=== PATIENT | female | born 1945 | race Two or more races ===

== ENCOUNTER 2017-11-04 13:29 | Inpatient (IN) | payer OTHER ==
[~2017-11-04] VITALS: Ht 165.1 cm; Wt 60.0 kg
[2017-11-04] VITALS (8 sets, daily range): BP systolic 101–134; BP diastolic 41–70
[2017-11-04] MEDS ORDERED: SODIUM CHLORIDE 0.9% 1,000 ML IV ONE (14:07)
[2017-11-04] MEDS ORDERED: LEVOFLOXACIN 500 MG/100 ML PREMIX BAG IV ONE (14:15)
[2017-11-04 14:50] LABS: Hematocrit 21.5 % (36.0-46.0); Mean Corpuscular Hgb Conc. 31.9 g/dL (32.0-36.0)
[2017-11-04 14:52] LABS: Mean Corpuscular Hemoglobin 23.7 pg (28.0-32.0); Mean Corpuscular Volume 74.3 fL (80.0-100.0); Platelet Count (auto) 148 10^3/uL (140-450)
[2017-11-04 15:02] LABS: Albumin 2.3 g/dL (3.4-5.0); Anion Gap 14 (5-15); Blood Alcohol < 3.0 mg/dL (0-5); Calcium 7.3 mg/dL (8.5-10.1); Carbon Dioxide 19 mmol/L (21-32); Chloride 94 mmol/L (98-107); Glucose 118 mg/dL (74-106); Magnesium 1.6 mg/dL (1.6-2.6); Sodium 127 mmol/L (136-145)
[2017-11-04 15:04] LABS: Alanine Aminotransferase 171 U/L (13-56); Aspartate Aminotransferase 341 U/L (15-37); GFR African American 15 mL/min; GFR Non-African American 12 mL/min
[2017-11-04 15:06] LABS: Lactic Acid w/Reflex 2.2 mmol/L (0.4-2.0)
[2017-11-04 15:08] LABS: Alkaline Phosphatase 443 U/L (45-117); Bilirubin, Total 2.8 mg/dL (0.2-1.0); Total Protein 6.3 g/dL (6.4-8.2)
[2017-11-04 15:13] LABS: Red Cell Distribution Width 27.1 % (11.8-14.3)
[2017-11-04 15:15] LABS: Blood Urea Nitrogen 90 mg/dL (7-18); INR 1.18 (0.9-1.15); Partial Thromboplastin Time 30.1 sec (22.64-33.71); Prothrombin Time 12.9 sec (9.37-12.3)
[2017-11-04 15:16] LABS: Hemoglobin 6.9 g/dL (12.2-16.2)
[2017-11-04 15:17] LABS: Band Neutrophils % (manual) 0; Basophils % (manual) 0 (0.0-2.0); Blast Cells 0; Eosinophils % (manual) 0 (0-7); Metamyelocytes % 0; Myelocytes % 0; Promyelocytes % 0; Reactive Lymphocytes 0
[2017-11-04 15:59] LABS: Urine Amorphous Crystal FEW /hpf (None Seen); Urine Bacteria FEW /hpf (None Seen); Urine Blood Negative /uL (Negative); Urine Mucus FEW (None Seen); Urine Specific Gravity 1.022 (1.001-1.035); Urine WBC 7 /hpf (0 - 5)
[2017-11-04] MEDS ORDERED: ERTAPENEM SOD INJ 0.5 GM in SODIUM CHL 0.9% 50 ML IV ONE (16:00)
[2017-11-04 16:27] LABS: Amylase 29 U/L (25-115); Lipase 86 U/L (73-393)
[2017-11-04] MEDS ORDERED: LORazepam 0.5 MG TAB PO PRN (16:30)
[2017-11-04] MEDS ORDERED: LACTULOSE 20Gm/30ML SOLN PO PRN (16:30)
[2017-11-04] MEDS ORDERED: PANTOPRAZOLE 40 MG/10 ML VIAL IV ONE (16:30)
[2017-11-04] MEDS ORDERED: TEMAZEPAM 15 MG CAP PO PRN (16:30)
[2017-11-04] MEDS ORDERED: PROMETHAZINE HCL 25 MG/ML 1ML IV PRN (16:30)
[2017-11-04] MEDS ORDERED: MORPHINE SULFATE 4 MG/ML SYR/VIAL IV PRN (16:30)
[2017-11-04] MEDS ORDERED: ALBUTEROL SULF 2.5 MG/0.5ML(0.5%) NEB SOLN NEB PRN (16:30)
[2017-11-04] MEDS ORDERED: LABETALOL HCL 5 MG/ML ML 20ML VIAL IV PRN (16:30)
[2017-11-04] MEDS ORDERED: NITROGLYCERIN 0.4 MG SL TAB SL PRN (16:30)
[2017-11-04] MEDS ORDERED: metroNIDAZOLE 500MG/100ML 100 ML IV ONE (16:30)
[2017-11-04 17:04] LABS: Lymphocytes % (manual) 6 (10.0-50.0); Monocytes % (manual) 1 (0-12)
[2017-11-04 17:25] LABS: Carcinoembryonic Antigen 2.39 ng/mL (<5.0 OR =)
[2017-11-04] MEDS: AZITHROMYCIN 500MG/ 250ML 250 ML IV SCH (17:33)
[2017-11-04 17:44] LABS: Folate (Folic Acid) 22.86 ng/mL (5.38-24)
[2017-11-04] MEDS ORDERED: metroNIDAZOLE 500MG/100ML 100 ML IV SCH (18:00)
[2017-11-04] MEDS ORDERED: NOREPINEPHRINE 8 MG/250ML KIT 250 ML IV ONE (18:05)
[2017-11-04 18:08] LABS: Hematocrit 21.2 % (36.0-46.0)
[2017-11-04] MEDS: NOREPINEPHRINE 8 MG/250ML KIT 250 ML IV SCH (18:08)
[2017-11-04 18:22] LABS: Hemoglobin 6.6 g/dL (12.2-16.2)
[2017-11-04] MEDS ORDERED: MIDAZOLAM DRIP 50 mg/50mL 50 ML IV ONE (18:38)
[2017-11-04] MEDS: MIDAZOLAM DRIP 50 mg/50mL 50 ML IV SCH ×2 (18:40→22:45)
[2017-11-04] MEDS ORDERED: LINEZOLID 600MG/300ML 300 ML IV ONE (19:30)
[2017-11-04] MEDS ORDERED: FUROSEMIDE 40 MG/4 ML VIAL IV ONE ×2 (20:00→23:30)
[2017-11-04] MEDS ORDERED: ATORVASTATIN 20 MG TAB PO SCH (22:00)
[2017-11-04] MEDS: PANTOPRAZOLE 40 MG/10 ML VIAL IV SCH (22:44)
[2017-11-05] VITALS (52 sets, daily range): BP systolic 85–127; BP diastolic 30–45
[2017-11-05 05:21] LABS: Basophils # (auto) 0 uL; Hematocrit 22.7 % (36.0-46.0); Hemoglobin 7.4 g/dL (12.2-16.2); Mean Corpuscular Hgb Conc. 32.7 g/dL (32.0-36.0); Monocytes # (auto) 0.9 uL; Neutrophils # (auto) 17.1 uL; Nucleated Red Blood Cells % 0.1 %
[2017-11-05 05:22] LABS: Basophils % (auto) 0.1 % (0.0-2.0); Eosinophils # (auto) 0.8 uL; Lymphocytes # (auto) 0.3 uL; Lymphocytes % (auto) 1.7 % (10.0-50.0); Mean Corpuscular Volume 79.5 fL (80.0-100.0); Monocytes % (auto) 4.8 % (0.0-12.0); Neutrophils % (auto) 89.4 % (37.0-80.0); Platelet Count (auto) 114 10^3/uL (140-450); Red Blood Cells 2.86 10^6/uL (4.0-5.20); White Blood Cell 19.1 10^3/uL (4.4-10.8)
[2017-11-05 05:23] LABS: Red Cell Distribution Width 25.2 % (11.8-14.3)
[2017-11-05 05:35] LABS: BUN/Creatinine Ratio 22.7; Bilirubin, Total 3.6 mg/dL (0.2-1.0); Calcium 6.9 mg/dL (8.5-10.1); Potassium 5.1 mmol/L (3.5-5.1); Total Protein 4.5 g/dL (6.4-8.2)
[2017-11-05] MEDS ORDERED: DOPamine 1600MCG/ML D5W 250 ML IV SCH (06:45)
[2017-11-05] MEDS: DOPamine 3200MCG/ML 250 ML IV SCH (07:16)
[2017-11-05] MEDS: PANTOPRAZOLE 40 MG/10 ML VIAL IV SCH ×2 (10:02→22:26)
[2017-11-05] MEDS: AZITHROMYCIN 500MG/ 250ML 250 ML IV SCH (10:02)
[2017-11-05] MEDS: LINEZOLID 600MG/300ML 300 ML IV SCH ×2 (10:03→22:26)
[2017-11-05] MEDS: ERTAPENEM SOD INJ 0.5 GM in SODIUM CHL 0.9% 50 ML IV SCH (11:13)
[2017-11-05] MEDS ORDERED: METO2.5T11 PO (12:08)
[2017-11-05] MEDS ORDERED: ATOR40TA52 PO (12:08)
[2017-11-05] MEDS ORDERED: PANT40TA2 PO (12:08)
[2017-11-05] MEDS ORDERED: TRAZ100T2 PO (12:08)
[2017-11-05] MEDS ORDERED: FLUT250M2 INH (12:08)
[2017-11-05] MEDS ORDERED: CARV6.2551 PO (12:08)
[2017-11-05] MEDS ORDERED: INSUINJ2 SC (12:08)
[2017-11-05] MEDS ORDERED: INSREG3 SC (12:08)
[2017-11-05] MEDS ORDERED: ISOS30TA4 PO (12:08)
[2017-11-05] MEDS ORDERED: HYDR50TA15 PO (12:08)
[2017-11-05] MEDS ORDERED: AMLO10TA2 PO (12:08)
[2017-11-05] MEDS ORDERED: DICL1GEL26 TD (12:08)
[2017-11-05] MEDS ORDERED: FURO40TA PO (12:08)
[2017-11-05] MEDS ORDERED: ALB5IS NEB (12:08)
[2017-11-05] MEDS ORDERED: POTA10TA34 PO (12:08)
[2017-11-05] MEDS ORDERED: ERGO1CAP23 PO (12:08)
[2017-11-05] MEDS ORDERED: ALL100T PO (12:08)
[2017-11-05] MEDS ORDERED: SODIUM BICARBONATE 8.4% INJ 50ML SYRINGE IV ONE (13:04)
[2017-11-05] MEDS ORDERED: EPINEPHrine HCL 1 MG/10 ML SYRG IV ONE (13:04)
[2017-11-05] MEDS ORDERED: CALCIUM CHLOR(10%) 100MG/ML 10ML SYRINGE IV ONE (13:04)
[2017-11-05] MEDS: MIDAZOLAM DRIP 50 mg/50mL 50 ML IV SCH (18:33)
[2017-11-05] MEDS: NOREPINEPHRINE 8 MG/250ML KIT 250 ML IV SCH (18:41)
[2017-11-05 19:46] LABS: BUN/Creatinine Ratio 22.9
[2017-11-05 20:06] LABS: Potassium 5.9 mmol/L (3.5-5.1)
[2017-11-05] MEDS ORDERED: BUMETANIDE INJECTION 12.5 MG in GIVE UN-DILUTED 0 ML IV SCH (20:15)
[2017-11-05] MEDS ORDERED: CALCIUM GLUC 4.65meq/50ml D5AE 50 ML IV ONE (20:30)
[2017-11-05] MEDS ORDERED: SODIUM BICARBONATE 8.4 % INJ 50ML VIAL IV ONE (20:30)
[2017-11-05] MEDS ORDERED: InsuLIN REG 1unit/0.01ml Soln (100units/ml) IV ONE (20:30)
[2017-11-05] MEDS ORDERED: DEXTROSE (50%) 50ML SYRG IV ONE (20:30)
[2017-11-05] MEDS ORDERED: DEXTROSE (50%) 50ML SYRG IV PRN (20:45)
[2017-11-05] MEDS ORDERED: SODIUM BICARBONATE 8.4% INJ 50ML SYRINGE ONE (21:20)
[2017-11-06] VITALS (108 sets, daily range): BP systolic 83–134; BP diastolic 32–58
[2017-11-06] MEDS ORDERED: ACCU-CHEK COMFORT CURVE STRIP VI SCH
[2017-11-06] MEDS ORDERED: DEXTROSE (50%) 50ML SYRG IV PRN (02:15)
[2017-11-06] MEDS ORDERED: InsuLIN REG 1unit/0.01ml Soln (100units/ml) SC ONE (02:30)
[2017-11-06] MEDS ORDERED: ACCU-CHEK COMFORT CURVE STRIP VI ONE (02:30)
[2017-11-06 03:46] LABS: Basophils # (auto) 0 uL; Mean Corpuscular Volume 79.1 fL (80.0-100.0); Monocytes # (auto) 0.6 uL
[2017-11-06 03:48] LABS: Basophils % (auto) 0.1 % (0.0-2.0); Eosinophils # (auto) 0.2 uL; Eosinophils % (auto) 0.9 % (0.0-7.0); Hemoglobin 7.6 g/dL (12.2-16.2); Lymphocytes # (auto) 0.7 uL; Lymphocytes % (auto) 3.7 % (10.0-50.0); Mean Corpuscular Hemoglobin 25.9 pg (28.0-32.0); Mean Corpuscular Hgb Conc. 32.8 g/dL (32.0-36.0); Neutrophils # (auto) 18.5 uL; Neutrophils % (auto) 92.3 % (37.0-80.0); Nucleated Red Blood Cells % 0.1 %; Platelet Count (auto) 97 10^3/uL (140-450); Red Blood Cells 2.92 10^6/uL (4.0-5.20)
[2017-11-06 04:01] LABS: Red Cell Distribution Width 25.1 % (11.8-14.3)
[2017-11-06 04:12] LABS: Albumin 1.8 g/dL (3.4-5.0); BUN/Creatinine Ratio 22.9; Bilirubin, Total 2.1 mg/dL (0.2-1.0); Calcium 7.3 mg/dL (8.5-10.1); Phosphorus 6.7 mg/dL (2.5-4.90); Potassium 4.9 mmol/L (3.5-5.1); Total Protein 5.2 g/dL (6.4-8.2)
[2017-11-06] MEDS ORDERED: InsuLIN REG 1unit/0.01ml Soln (100units/ml) SC SCH ×2 (08:00)
[2017-11-06] MEDS: ACCU-CHEK COMFORT CURVE STRIP VI SCH ×4 (08:30→19:50)
[2017-11-06] MEDS: DOPamine 3200MCG/ML 250 ML IV SCH (09:07)
[2017-11-06] MEDS: LINEZOLID 600MG/300ML 300 ML IV SCH ×2 (09:55→21:31)
[2017-11-06] MEDS: PANTOPRAZOLE 40 MG/10 ML VIAL IV SCH ×2 (09:55→21:31)
[2017-11-06] MEDS: MIDAZOLAM DRIP 50 mg/50mL 50 ML IV SCH (12:22)
[2017-11-06] MEDS: InsuLIN REG 1unit/0.01ml Soln (100units/ml) SC SCH ×3 (12:40→19:50)
[2017-11-06] MEDS: AZITHROMYCIN 500MG/ 250ML 250 ML IV SCH (12:43)
[2017-11-06] MEDS: ERTAPENEM SOD INJ 0.5 GM in SODIUM CHL 0.9% 50 ML IV SCH (15:34)
[2017-11-06] MEDS: NOREPINEPHRINE 8 MG/250ML KIT 250 ML IV SCH (18:10)
[2017-11-07] VITALS (105 sets, daily range): BP systolic 98–132; BP diastolic 31–51
[2017-11-07] MEDS: ACCU-CHEK COMFORT CURVE STRIP VI SCH ×7 (00:05→23:31)
[2017-11-07] MEDS: InsuLIN REG 1unit/0.01ml Soln (100units/ml) SC SCH ×7 (00:05→23:32)
[2017-11-07 03:52] LABS: Platelet Count (auto) 45 10^3/uL (140-450)
[2017-11-07 03:54] LABS: Hematocrit 32.1 % (36.0-46.0); Hemoglobin 10.7 g/dL (12.2-16.2); Mean Corpuscular Hgb Conc. 33.2 g/dL (32.0-36.0); Mean Corpuscular Volume 81.2 fL (80.0-100.0); Red Blood Cells 3.96 10^6/uL (4.0-5.20)
[2017-11-07 03:55] LABS: INR 1.14 (0.9-1.15); Partial Thromboplastin Time 30.7 sec (22.64-33.71); Prothrombin Time 12.4 sec (9.37-12.3)
[2017-11-07 03:58] LABS: Albumin 1.8 g/dL (3.4-5.0); Calcium 6.9 mg/dL (8.5-10.1); Potassium 4.8 mmol/L (3.5-5.1)
[2017-11-07 03:59] LABS: Red Cell Distribution Width 24.7 % (11.8-14.3); White Blood Cell 30.6 10^3/uL (4.4-10.8)
[2017-11-07 04:00] LABS: Basophils % (manual) 0 (0.0-2.0); Blast Cells 0; Eosinophils % (manual) 0 (0-7); Metamyelocytes % 0; Myelocytes % 0; Promyelocytes % 0; Reactive Lymphocytes 0
[2017-11-07 04:07] LABS: Bilirubin, Total 1.6 mg/dL (0.2-1.0); Total Protein 5.3 g/dL (6.4-8.2)
[2017-11-07 04:42] LABS: BUN/Creatinine Ratio 26.4
[2017-11-07 05:13] LABS: Band Neutrophils % (manual) 8; Lymphocytes % (manual) 2 (10.0-50.0); Monocytes % (manual) 9 (0-12)
[2017-11-07] MEDS: DOPamine 3200MCG/ML 250 ML IV SCH (06:50)
[2017-11-07] MEDS ORDERED: LINEZOLID 600MG/300ML 300 ML IV SCH (08:00)
[2017-11-07] MEDS: MIDAZOLAM DRIP 50 mg/50mL 50 ML IV SCH (09:22)
[2017-11-07] MEDS ORDERED: LEVOFLOXACIN 500MG 100 ML IV ONE (10:15)
[2017-11-07] MEDS: PANTOPRAZOLE 40 MG/10 ML VIAL IV SCH ×2 (10:20→21:54)
[2017-11-07] MEDS: MEROPENEM 500mg/10ml IVPUSH 10 ML IV SCH ×2 (11:01→23:16)
[2017-11-07] MEDS ORDERED: AZITHROMYCIN 500MG/ 250ML 250 ML IV SCH (12:00)
[2017-11-07] MEDS ORDERED: CLOPIDOGREL BISULFATE 75 MG TAB PO ONE (14:15)
[2017-11-07] MEDS: NOREPINEPHRINE 8 MG/250ML KIT 250 ML IV SCH (16:51)
[2017-11-08] VITALS (95 sets, daily range): BP systolic 101–149; BP diastolic 31–57
[2017-11-08 03:49] LABS: Basophils # (auto) 0.1 uL; Basophils % (auto) 0.4 % (0.0-2.0)
[2017-11-08 03:50] LABS: Eosinophils # (auto) 0.1 uL; Eosinophils % (auto) 0.2 % (0.0-7.0); Hematocrit 32.9 % (36.0-46.0); Hemoglobin 10.9 g/dL (12.2-16.2); Lymphocytes # (auto) 0.8 uL; Lymphocytes % (auto) 2.9 % (10.0-50.0); Mean Corpuscular Hgb Conc. 33.1 g/dL (32.0-36.0); Mean Corpuscular Volume 81.6 fL (80.0-100.0); Monocytes # (auto) 2.3 uL; Monocytes % (auto) 7.8 % (0.0-12.0); Neutrophils % (auto) 88.7 % (37.0-80.0); Platelet Count (auto) 29 10^3/uL (140-450); Red Blood Cells 4.03 10^6/uL (4.0-5.20); White Blood Cell 29.3 10^3/uL (4.4-10.8)
[2017-11-08] MEDS: ACCU-CHEK COMFORT CURVE STRIP VI SCH ×6 (03:58→23:53)
[2017-11-08] MEDS: InsuLIN REG 1unit/0.01ml Soln (100units/ml) SC SCH ×6 (04:00→23:53)
[2017-11-08 04:06] LABS: Red Cell Distribution Width 24.9 % (11.8-14.3)
[2017-11-08 04:54] LABS: Albumin 1.6 g/dL (3.4-5.0); BUN/Creatinine Ratio 29.2; Potassium 5.3 mmol/L (3.5-5.1)
[2017-11-08 04:56] LABS: Bilirubin, Total 1.7 mg/dL (0.2-1.0)
[2017-11-08] MEDS: DOPamine 3200MCG/ML 250 ML IV SCH (06:50)
[2017-11-08] MEDS: PANTOPRAZOLE 40 MG/10 ML VIAL IV SCH ×2 (09:38→22:09)
[2017-11-08] MEDS: LEVOFLOXACIN 250MG 50 ML IV SCH (09:41)
[2017-11-08] MEDS ORDERED: LIDOCAINE 2%HCL (LOCAL ANESTH.) INJ 20ML MDV ONE (09:54)
[2017-11-08] MEDS ORDERED: HEPARIN SODIUM (PORCINE) 5000 UNITS/ML 1ML VIAL ONE (11:25)
[2017-11-08] MEDS: MEROPENEM 500mg/10ml IVPUSH 10 ML IV SCH ×2 (16:00→22:51)
[2017-11-08] MEDS: CLOPIDOGREL BISULFATE 75 MG TAB PO SCH (16:00)
[2017-11-08] MEDS: Diabetisource AC 1 Liter GT SCH (16:30)
[2017-11-08] MEDS: NOREPINEPHRINE 8 MG/250ML KIT 250 ML IV SCH (16:51)
[2017-11-08] MEDS: MIDAZOLAM DRIP 50 mg/50mL 50 ML IV SCH (16:52)
[2017-11-09] VITALS (92 sets, daily range): BP systolic 99–136; BP diastolic 32–52
[2017-11-09] MEDS: InsuLIN REG 1unit/0.01ml Soln (100units/ml) SC SCH ×5 (03:37→20:29)
[2017-11-09] MEDS: ACCU-CHEK COMFORT CURVE STRIP VI SCH ×5 (03:37→20:29)
[2017-11-09 04:07] LABS: Basophils # (auto) 0 uL; Eosinophils # (auto) 0 uL; Lymphocytes # (auto) 0.6 uL
[2017-11-09 04:10] LABS: Eosinophils % (auto) 0.2 % (0.0-7.0); Hematocrit 28.7 % (36.0-46.0); Hemoglobin 9.5 g/dL (12.2-16.2); Mean Corpuscular Hemoglobin 27.2 pg (28.0-32.0); Mean Corpuscular Hgb Conc. 33.2 g/dL (32.0-36.0); Mean Corpuscular Volume 82.1 fL (80.0-100.0); Monocytes # (auto) 1.4 uL; Monocytes % (auto) 6.8 % (0.0-12.0); Neutrophils # (auto) 18.1 uL; White Blood Cell 20.1 10^3/uL (4.4-10.8)
[2017-11-09 04:34] LABS: Red Cell Distribution Width 24.7 % (11.8-14.3)
[2017-11-09 04:36] LABS: Albumin 1.5 g/dL (3.4-5.0); BUN/Creatinine Ratio 26.8; Bilirubin, Total 1.7 mg/dL (0.2-1.0); Calcium 6.8 mg/dL (8.5-10.1); Potassium 4.5 mmol/L (3.5-5.1); Total Protein 4.6 g/dL (6.4-8.2)
[2017-11-09 04:42] LABS: Platelet Count (auto) 19 10^3/uL (140-450)
[2017-11-09] MEDS: NOREPINEPHRINE 8 MG/250ML KIT 250 ML IV SCH (08:04)
[2017-11-09] MEDS: CLOPIDOGREL BISULFATE 75 MG TAB PO SCH (10:00)
[2017-11-09] MEDS: PANTOPRAZOLE 40 MG/10 ML VIAL IV SCH (10:05)
[2017-11-09] MEDS: LEVOFLOXACIN 250MG 50 ML IV SCH (10:05)
[2017-11-09] MEDS: MEROPENEM 500mg/10ml IVPUSH 10 ML IV SCH (11:32)
[2017-11-09] MEDS ORDERED: BACTRIM 5MG/KG Q8HR PER RX 0 ML IV SCH (14:15)
[2017-11-09] MEDS: D5W 5% IV SCH (16:23)
[2017-11-09] MEDS: SULFAMETH TRIMETH IV SCH (16:23)
[2017-11-09] MEDS: MIDAZOLAM DRIP 50 mg/50mL 50 ML IV SCH (18:48)
[2017-11-09] MEDS: Diabetisource AC 1 Liter GT SCH (19:31)
[2017-11-10] VITALS (53 sets, daily range): BP systolic 110–143; BP diastolic 31–83
[2017-11-10] MEDS: InsuLIN REG 1unit/0.01ml Soln (100units/ml) SC SCH ×6 (00:12→20:00)
[2017-11-10] MEDS: ACCU-CHEK COMFORT CURVE STRIP VI SCH ×6 (00:12→20:00)
[2017-11-10] MEDS: D5W 5% IV SCH (04:24)
[2017-11-10] MEDS: SULFAMETH TRIMETH IV SCH (04:24)
[2017-11-10 04:45] LABS: Basophils # (auto) 0 uL; Basophils % (auto) 0.1 % (0.0-2.0); Eosinophils % (auto) 0.2 % (0.0-7.0); Hemoglobin 9.4 g/dL (12.2-16.2); Lymphocytes # (auto) 0.9 uL; Neutrophils # (auto) 18.6 uL; Neutrophils % (auto) 87.7 % (37.0-80.0); White Blood Cell 21.3 10^3/uL (4.4-10.8)
[2017-11-10 04:49] LABS: Eosinophils # (auto) 0 uL; Hematocrit 28.2 % (36.0-46.0); Lymphocytes % (auto) 4.3 % (10.0-50.0); Mean Corpuscular Hemoglobin 27.6 pg (28.0-32.0); Mean Corpuscular Hgb Conc. 33.3 g/dL (32.0-36.0); Monocytes # (auto) 1.6 uL; Monocytes % (auto) 7.7 % (0.0-12.0)
[2017-11-10 05:04] LABS: Albumin 1.6 g/dL (3.4-5.0); BUN/Creatinine Ratio 28.5; Bilirubin, Total 1.1 mg/dL (0.2-1.0); Calcium 7.5 mg/dL (8.5-10.1); Potassium 4.2 mmol/L (3.5-5.1); Total Protein 4.7 g/dL (6.4-8.2)
[2017-11-10 05:18] LABS: Red Cell Distribution Width 25.2 % (11.8-14.3)
[2017-11-10 05:20] LABS: Platelet Count (auto) 16 10^3/uL (140-450)
[2017-11-10] MEDS: PANTOPRAZOLE 40 MG/10 ML VIAL IV SCH (09:44)
[2017-11-10] MEDS ORDERED: LEVOFLOXACIN 250MG 50 ML IV ONE (11:30)
[2017-11-10] MEDS: ACETAMINOPHEN 500 MG TAB PO PRN (23:08)
[2017-11-11] VITALS (34 sets, daily range): BP systolic 118–175; BP diastolic 44–85
[2017-11-11] MEDS: ACCU-CHEK COMFORT CURVE STRIP VI SCH ×7 (00:19→23:42)
[2017-11-11 03:51] LABS: Basophils # (auto) 0 uL; Eosinophils # (auto) 0.1 uL; Hematocrit 27.3 % (36.0-46.0)
[2017-11-11 03:55] LABS: Basophils % (auto) 0.2 % (0.0-2.0); Eosinophils % (auto) 0.3 % (0.0-7.0); Hemoglobin 9.1 g/dL (12.2-16.2); Lymphocytes % (auto) 5.1 % (10.0-50.0); Mean Corpuscular Hemoglobin 27.9 pg (28.0-32.0); Mean Corpuscular Hgb Conc. 33.5 g/dL (32.0-36.0); Mean Corpuscular Volume 83.4 fL (80.0-100.0); Monocytes # (auto) 1.4 uL; Monocytes % (auto) 6.9 % (0.0-12.0); Neutrophils # (auto) 17.7 uL; Neutrophils % (auto) 87.5 % (37.0-80.0); Platelet Count (auto) 43 10^3/uL (140-450); Red Blood Cells 3.27 10^6/uL (4.0-5.20); White Blood Cell 20.2 10^3/uL (4.4-10.8)
[2017-11-11] MEDS: InsuLIN REG 1unit/0.01ml Soln (100units/ml) SC SCH ×7 (04:00→23:52)
[2017-11-11 04:01] LABS: Albumin 1.8 g/dL (3.4-5.0); BUN/Creatinine Ratio 38.5; Calcium 7.9 mg/dL (8.5-10.1); Potassium 4.2 mmol/L (3.5-5.1)
[2017-11-11 04:04] LABS: Bilirubin, Total 1.2 mg/dL (0.2-1.0); Red Cell Distribution Width 24.7 % (11.8-14.3)
[2017-11-11] MEDS: PANTOPRAZOLE 40 MG/10 ML VIAL IV SCH (09:43)
[2017-11-11] MEDS: LEVOFLOXACIN 250MG 50 ML IV SCH (09:44)
[2017-11-11] MEDS ORDERED: FUROSEMIDE 40 MG/4 ML VIAL ONE (12:56)
[2017-11-11] MEDS ORDERED: FUROSEMIDE 40 MG/4 ML VIAL IV ONE (13:00)
[2017-11-11] MEDS ORDERED: NITROGLYCERIN 2% OINT 1GM PKG TD ONE ×2 (14:35→15:30)
[2017-11-11] MEDS ORDERED: FUROSEMIDE INJECTION 10 ML ONE (14:35)
[2017-11-11] MEDS ORDERED: ETOMIDATE (2MG/ML) 20ML VIAL IV ONE (14:58)
[2017-11-11] MEDS ORDERED: SUCCINYLCHOLINE CHLORIDE 20 MG/ML 10ML VIAL IV ONE (14:58)
[2017-11-11] MEDS ORDERED: ROCURONIUM 10MG/ML 10ML VIAL IV ONE (14:58)
[2017-11-11] MEDS ORDERED: FUROSEMIDE 20 MG/2 ML VIAL IV ONE (15:30)
[2017-11-11] MEDS: MORPHINE SULFATE 4 MG/ML SYR/VIAL IV PRN (18:45)
[2017-11-11] MEDS: HYDROcodone-ACET 5/325MG TAB PO PRN (21:07)
[2017-11-11] MEDS: NITROGLYCERIN 2% OINT 1GM PKG TD SCH (23:00)
[2017-11-12] VITALS (50 sets, daily range): BP systolic 115–181; BP diastolic 33–106
[2017-11-12] MEDS: MORPHINE SULFATE 4 MG/ML SYR/VIAL IV PRN ×2 (00:41→16:30)
[2017-11-12] MEDS: HYDROcodone-ACET 5/325MG TAB PO PRN (03:44)
[2017-11-12] MEDS: ACCU-CHEK COMFORT CURVE STRIP VI SCH ×5 (04:20→20:00)
[2017-11-12] MEDS: InsuLIN REG 1unit/0.01ml Soln (100units/ml) SC SCH ×5 (04:35→20:00)
[2017-11-12 04:43] LABS: Basophils # (auto) 0 uL; Eosinophils # (auto) 0 uL; Eosinophils % (auto) 0.1 % (0.0-7.0); Lymphocytes # (auto) 0.9 uL
[2017-11-12 04:45] LABS: Basophils % (auto) 0.1 % (0.0-2.0); Hematocrit 30.3 % (36.0-46.0); Hemoglobin 9.9 g/dL (12.2-16.2); Lymphocytes % (auto) 3.8 % (10.0-50.0); Mean Corpuscular Hemoglobin 27.8 pg (28.0-32.0); Mean Corpuscular Hgb Conc. 32.6 g/dL (32.0-36.0); Mean Corpuscular Volume 85.2 fL (80.0-100.0); Monocytes # (auto) 1.4 uL; Monocytes % (auto) 5.9 % (0.0-12.0); Neutrophils # (auto) 20.9 uL; Neutrophils % (auto) 90.1 % (37.0-80.0); Nucleated Red Blood Cells % 0.1 %; Platelet Count (auto) 35 10^3/uL (140-450); Red Blood Cells 3.56 10^6/uL (4.0-5.20); White Blood Cell 23.2 10^3/uL (4.4-10.8)
[2017-11-12 04:57] LABS: Albumin 2.1 g/dL (3.4-5.0); BUN/Creatinine Ratio 45.5; Calcium 8.3 mg/dL (8.5-10.1); Potassium 3.8 mmol/L (3.5-5.1)
[2017-11-12 05:00] LABS: Bilirubin, Total 1.5 mg/dL (0.2-1.0); Total Protein 5.6 g/dL (6.4-8.2)
[2017-11-12 05:05] LABS: Red Cell Distribution Width 24.7 % (11.8-14.3)
[2017-11-12] MEDS: NITROGLYCERIN 2% OINT 1GM PKG TD SCH ×3 (06:00→22:00)
[2017-11-12] MEDS ORDERED: FUROSEMIDE 20 MG/2 ML VIAL IV ONE (09:30)
[2017-11-12] MEDS: PANTOPRAZOLE 40 MG/10 ML VIAL IV SCH (09:37)
[2017-11-12] MEDS: LEVOFLOXACIN 250MG 50 ML IV SCH (09:37)
[2017-11-12] MEDS ORDERED: amLODIPine BESYLATE 5 MG TAB PO ONE (12:00)
[2017-11-12] MEDS ORDERED: BACTRIM IV SCH (12:15)
[2017-11-12] MEDS ORDERED: [UNRECOGNIZED DRUG - OTHER] IV SCH (12:15)
[2017-11-12] MEDS ORDERED: LEVOFLOXACIN 500MG 100 ML IV ONE (15:45)
[2017-11-12] MEDS: SULFAMETH-TRIMETH 80/16MG-ML 15 ML in D5W 5% 500 ML IV SCH (16:10)
[2017-11-12] MEDS: FUROSEMIDE 40 MG/4 ML VIAL IV SCH (17:53)
[2017-11-12] MEDS: CARVEDILOL 3.125 MG TAB PO SCH (22:00)
[2017-11-13] VITALS (77 sets, daily range): BP systolic 102–138; BP diastolic 32–58
[2017-11-13] MEDS: SULFAMETH-TRIMETH 80/16MG-ML 15 ML in D5W 5% 500 ML IV SCH ×2 (01:00→12:49)
[2017-11-13 03:51] LABS: Basophils # (auto) 0 uL; Basophils % (auto) 0.2 % (0.0-2.0); Eosinophils # (auto) 0.1 uL
[2017-11-13 03:52] LABS: Eosinophils % (auto) 0.5 % (0.0-7.0); Hematocrit 25.9 % (36.0-46.0); Hemoglobin 8.6 g/dL (12.2-16.2); Lymphocytes # (auto) 0.7 uL; Lymphocytes % (auto) 3.7 % (10.0-50.0); Mean Corpuscular Volume 84.6 fL (80.0-100.0); Monocytes # (auto) 1.3 uL; Monocytes % (auto) 6.5 % (0.0-12.0); Neutrophils # (auto) 17.8 uL; Neutrophils % (auto) 89.1 % (37.0-80.0); Platelet Count (auto) 27 10^3/uL (140-450); Red Blood Cells 3.06 10^6/uL (4.0-5.20)
[2017-11-13] MEDS: ACCU-CHEK COMFORT CURVE STRIP VI SCH ×6 (03:54→20:00)
[2017-11-13] MEDS: InsuLIN REG 1unit/0.01ml Soln (100units/ml) SC SCH ×6 (03:55→20:00)
[2017-11-13 03:57] LABS: BUN/Creatinine Ratio 52.9; Calcium 8.2 mg/dL (8.5-10.1); Potassium 3.5 mmol/L (3.5-5.1)
[2017-11-13 04:16] LABS: Red Cell Distribution Width 24.6 % (11.8-14.3)
[2017-11-13] MEDS: FUROSEMIDE 40 MG/4 ML VIAL IV SCH ×2 (06:27→18:01)
[2017-11-13] MEDS: NITROGLYCERIN 2% OINT 1GM PKG TD SCH (06:27)
[2017-11-13] MEDS: CARVEDILOL 3.125 MG TAB PO SCH ×2 (09:48→22:00)
[2017-11-13] MEDS: PANTOPRAZOLE 40 MG/10 ML VIAL IV SCH (09:48)
[2017-11-13] MEDS: amLODIPine BESYLATE 5 MG TAB PO SCH (09:49)
[2017-11-13] MEDS ORDERED: LEVOFLOXACIN 750MG 150 ML IV SCH (10:00)
[2017-11-13] MEDS ORDERED: LEVOFLOXACIN 500MG 100 ML IV SCH (10:00)
[2017-11-13] MEDS: HYDROcodone-ACET 5/325MG TAB PO PRN (10:43)
[2017-11-13] MEDS ORDERED: INSULIN LANTUS (GLARGINE) 1 /0.01ml (100units/ml) SC ONE (12:45)
[2017-11-13] MEDS ORDERED: Diabetisource AC 1 Liter GT SCH (12:45)
[2017-11-13] MEDS ORDERED: HYDROcodone-ACET 5/325MG TAB PO PRN (12:45)
[2017-11-13] MEDS ORDERED: MORPHINE SULFATE 4 MG/ML SYR/VIAL IV PRN ×2 (12:45)
[2017-11-13] MEDS: ACETAMINOPHEN 500 MG TAB PO PRN (14:18)
[2017-11-13] MEDS ORDERED: INSULIN LANTUS (GLARGINE) 1 /0.01ml (100units/ml) SC SCH (22:00)
[2017-11-14] VITALS (22 sets, daily range): BP systolic 107–139; BP diastolic 37–93
[2017-11-14] MEDS: SULFAMETH-TRIMETH 80/16MG-ML 15 ML in D5W 5% 500 ML IV SCH ×2 (01:00→13:33)
[2017-11-14] MEDS: InsuLIN REG 1unit/0.01ml Soln (100units/ml) SC SCH ×4 (02:00→12:00)
[2017-11-14 03:01] LABS: Basophils # (auto) 0 uL; Eosinophils # (auto) 0.2 uL; Monocytes # (auto) 1.3 uL
[2017-11-14 03:03] LABS: Basophils % (auto) 0.2 % (0.0-2.0); Eosinophils % (auto) 0.8 % (0.0-7.0); Hematocrit 28.2 % (36.0-46.0); Hemoglobin 9.2 g/dL (12.2-16.2); Lymphocytes # (auto) 0.8 uL; Lymphocytes % (auto) 3.2 % (10.0-50.0); Mean Corpuscular Hemoglobin 27.6 pg (28.0-32.0); Mean Corpuscular Hgb Conc. 32.5 g/dL (32.0-36.0); Mean Corpuscular Volume 84.8 fL (80.0-100.0); Neutrophils # (auto) 23.3 uL; Neutrophils % (auto) 90.8 % (37.0-80.0); Platelet Count (auto) 34 10^3/uL (140-450); Red Blood Cells 3.32 10^6/uL (4.0-5.20); White Blood Cell 25.7 10^3/uL (4.4-10.8)
[2017-11-14 03:14] LABS: Red Cell Distribution Width 24.9 % (11.8-14.3)
[2017-11-14 03:22] LABS: BUN/Creatinine Ratio 52.2; Potassium 3.1 mmol/L (3.5-5.1)
[2017-11-14] MEDS: ACCU-CHEK COMFORT CURVE STRIP VI SCH ×4 (04:00→12:26)
[2017-11-14] MEDS ORDERED: SULFAMETH TRIMETH IV ONE (04:07)
[2017-11-14] MEDS: FUROSEMIDE 40 MG/4 ML VIAL IV SCH (06:00)
[2017-11-14] MEDS: amLODIPine BESYLATE 5 MG TAB PO SCH (09:48)
[2017-11-14] MEDS: CARVEDILOL 3.125 MG TAB PO SCH (09:48)
[2017-11-14] MEDS: PANTOPRAZOLE 40 MG/10 ML VIAL IV SCH (09:48)
[2017-11-14] MEDS: ACETAMINOPHEN 500 MG TAB PO PRN (11:08)
[2017-11-14] MEDS ORDERED: VANCOMYCIN PER PHARMACY 0 MG IV SCH (12:00)
[2017-11-14] MEDS ORDERED: NITROGLYCERIN 2% OINT 1GM PKG TD ONE ×2 (12:14→12:15)
[2017-11-14] MEDS ORDERED: FUROSEMIDE 40 MG/4 ML VIAL ONE (12:14)
[2017-11-14] MEDS ORDERED: FUROSEMIDE 20 MG/2 ML VIAL ONE (12:14)
[2017-11-14] MEDS ORDERED: MORPHINE SULFATE 4 MG/ML SYR/VIAL IV ONE (12:15)
[2017-11-14] MEDS ORDERED: POTASSIUM CHL 10% (20 MEQ/15ML) 15ml ORAL SOLN GT ONE (12:15)
[2017-11-14] MEDS ORDERED: FUROSEMIDE 20 MG/2 ML VIAL IV ONE (12:15)
[2017-11-14] MEDS ORDERED: SODIUM CHLORIDE 0.9% 250 ML IV ONE (13:45)
[2017-11-14] MEDS ORDERED: SODIUM CHLORIDE 0.9% 1,000 ML IV ONE (13:45)
[2017-11-14] MEDS ORDERED: VANCOMYCIN 500 MG in D5W 5% 100 ML IV SCH (14:00)
[2017-11-14] MEDS ORDERED: VANCOMYCIN 750 MG in D5W 5% 250 ML IV SCH (14:00)
== END 2017-11-14 21:05 | disposition expired | DRG 870 ==
LOC: EDBD 13:29 → ER 13:29 → OVERFLOW 13:30 → ICU WEST 11-05 13:57
PROVIDERS: ADMIT Internal Medicine; ATTEND Internal Medicine
PROC: 5A1955Z Respiratory Ventilation, Greater than 96 Consecutive Hours (ICD-10-PCS; principal; 2017-11-04)
PROC: 0BH17EZ Insertion of Endotracheal Airway into Trachea, Via Natural or Artificial Opening (ICD-10-PCS; 2017-11-04)
PROC: 5A12012 Performance of Cardiac Output, Single, Manual (ICD-10-PCS; 2017-11-04)
PROC: 30233N1 Transfusion of Nonautologous Red Blood Cells into Peripheral Vein, Percutaneous Approach (ICD-10-PCS; 2017-11-04)
PROC: 5A1D70Z Performance of Urinary Filtration, Intermittent, Less than 6 Hours Per Day (ICD-10-PCS; 2017-11-08)
PROC: 02H633Z Insertion of Infusion Device into Right Atrium, Percutaneous Approach (ICD-10-PCS; 2017-11-08)
PROC: B244ZZZ Ultrasonography of Right Heart (ICD-10-PCS; 2017-11-08)
PROC: 02PY33Z Removal of Infusion Device from Great Vessel, Percutaneous Approach (ICD-10-PCS; 2017-11-08)
PROC: 02HV33Z Insertion of Infusion Device into Superior Vena Cava, Percutaneous Approach (ICD-10-PCS; 2017-11-08)
PROC: B548ZZA Ultrasonography of Superior Vena Cava, Guidance (ICD-10-PCS; 2017-11-08)
PROC: 5A1D70Z Performance of Urinary Filtration, Intermittent, Less than 6 Hours Per Day (ICD-10-PCS; 2017-11-09)
PROC: 30233R1 Transfusion of Nonautologous Platelets into Peripheral Vein, Percutaneous Approach (ICD-10-PCS; 2017-11-10)
PROC: 5A09457 Assistance with Respiratory Ventilation, 24-96 Consecutive Hours, Continuous Positive Airway Pressure (ICD-10-PCS; 2017-11-11)
PROC: 5A1D70Z Performance of Urinary Filtration, Intermittent, Less than 6 Hours Per Day (ICD-10-PCS; 2017-11-12)
PROC: 5A1D70Z Performance of Urinary Filtration, Intermittent, Less than 6 Hours Per Day (ICD-10-PCS; 2017-11-14)
DX: A41.01 Sepsis due to Methicillin susceptible Staphylococcus aureus (principal); I21.A1 Myocardial infarction type 2; I46.9 Cardiac arrest, cause unspecified; E43 Unspecified severe protein-calorie malnutrition; J15.211 Pneumonia due to Methicillin susceptible Staphylococcus aureus; N17.0 Acute kidney failure with tubular necrosis; J96.21 Acute and chronic respiratory failure with hypoxia; K72.00 Acute and subacute hepatic failure without coma; J15.8 Pneumonia due to other specified bacteria; D69.6 Thrombocytopenia, unspecified; E11.22 Type 2 diabetes mellitus with diabetic chronic kidney disease; R65.21 Severe sepsis with septic shock; G93.41 Metabolic encephalopathy; I50.33 Acute on chronic diastolic (congestive) heart failure; N18.6 End stage renal disease; G93.1 Anoxic brain damage, not elsewhere classified; E87.1 Hypo-osmolality and hyponatremia; L03.116 Cellulitis of left lower limb; M86.8X7 Other osteomyelitis, ankle and foot; I13.2 Hypertensive heart and chronic kidney disease with heart failure and with stage 5 chronic kidney disease, or end stage renal disease; I50.9 Heart failure, unspecified; K72.90 Hepatic failure, unspecified without coma; E87.6 Hypokalemia; I27.20 Pulmonary hypertension, unspecified; I70.202 Unspecified atherosclerosis of native arteries of extremities, left leg; E11.69 Type 2 diabetes mellitus with other specified complication; Z51.5 Encounter for palliative care; E11.621 Type 2 diabetes mellitus with foot ulcer; D50.9 Iron deficiency anemia, unspecified; E87.5 Hyperkalemia; L97.529 Non-pressure chronic ulcer of other part of left foot with unspecified severity; K59.00 Constipation, unspecified; K80.20 Calculus of gallbladder without cholecystitis without obstruction; M10.9 Gout, unspecified; Z68.22 Body mass index [BMI] 22.0-22.9, adult; Z79.82 Long term (current) use of aspirin; Z82.49 Family history of ischemic heart disease and other diseases of the circulatory system; Z95.3 Presence of xenogenic heart valve; Z99.2 Dependence on renal dialysis; Z99.81 Dependence on supplemental oxygen; Z89.422 Acquired absence of other left toe(s); Z89.421 Acquired absence of other right toe(s); Z88.0 Allergy status to penicillin; Z88.6 Allergy status to analgesic agent; Z79.899 Other long term (current) drug therapy; Z71.3 Dietary counseling and surveillance
CPT/HCPCS: 36415; 36430; 36558; 36581; 36600; 51702; 70450; 71045; 73620; 73700; 74176; 76775; 76937; 80048; 80053; 80061; 80320; 81001; 82140; 82150; 82378; 82550; 82607; 82746; 82805; 82962; 83605; 83690; 83735; 83880; 84100; 84443; 84484; 85007; 85014; 85018; 85025; 85027; 85045; 85610; 85652; 85730; 86141; 86850; 86900; 86901; 86920; 87040; 87070; 87077; 87081; 87086; 87147; 87186; 87205; 87493; 90935; 93005; 93306; 93926; 93970; 94002; 94003; 94640; 94660; 95819; 96361; 96374; 96379; 99152; 99291; C9113; G0378; J0330; J0610; J1265; J1335; J1815; J1956; J2250; J3490; J7060